=== PATIENT | male | born 1990 | race Caucasian/White ===

== ENCOUNTER 2020-11-06 20:15 | Emergency (ER) | payer SELFPAY ==
[2020-11-06] MEDS ORDERED: diphenhydrAMINE 50 MG/ML VIAL ONE (20:45)
[2020-11-06] MEDS ORDERED: Acetaminophen 500 MG TAB ONE (20:46)
[2020-11-06] MEDS ORDERED: Ketorolac Tromethamine 30 MG/ML VIAL ONE (20:46)
[2020-11-06] MEDS ORDERED: Metoclopramide HCl 10 MG/2 ML VIAL ONE (20:46)
== END 2020-11-06 22:14 | disposition left against medical advice (07) ==
LOC: CSHERS 20:15
DX: E86.0 Dehydration (principal); R51.9 Headache, unspecified; F17.210 Nicotine dependence, cigarettes, uncomplicated
CPT/HCPCS: 96365; 96375; J1200; J1885; J2765

== ENCOUNTER 2021-06-25 00:54 | Emergency (ER) | payer SELFPAY | END 2021-06-25 02:49 | disposition home or self-care (01) | LOC: CSHERS 00:54 | DX: S60.031A Contusion of right middle finger without damage to nail, initial encounter (principal); W22.8XXA Striking against or struck by other objects, initial encounter; J45.909 Unspecified asthma, uncomplicated; F17.210 Nicotine dependence, cigarettes, uncomplicated ==

== ENCOUNTER 2024-05-03 23:01 | Emergency (ER) | payer OTHER, SELFPAY ==
[2024-05-03] MEDS ORDERED: Nitroglycerin 2% Ointment 1 INCH/1 GM Packet ONE (23:31)
[2024-05-03] MEDS ORDERED: Aspirin Chewable 81 MG TAB ONE (23:32)
[2024-05-04 00:15] LABS: #Basophils 0.09 10x3/uL (0.0-0.2); #Eosinophils 0.16 10x3/uL (0.0-0.5); #Monocytes 0.85 10x3/uL (0.0-1.1); #Neutrophils 6.45 10x3/uL (1.5-8.4); %Basophils 0.8 % (0.0-2.0); %Eosinophils 1.5 % (0.0-6.0); %Lymphocytes 28.3 % (18.0-47.0); Hematocrit 41.9 % (38.8-50.0); Hemoglobin 14.9 g/dL (13.5-17.5); Mean Corpuscular HGB CONC 35.6 g/dL (32.0-36.0); Mean Corpuscular Hemoglobin 31.5 pg (27.0-33.0); Mean Corpuscular Volume 88.6 fL (81.2-95.1); Mean Platelet Volume 10.1 fL (7.4-10.4); Platelet Count 352 10x3/uL (150-450); RBC Distribution Width 11.9 % (11.5-14.5); Red Blood Cell (RBC) Count 4.73 10x6/uL (4.32-5.72); White Blood Cell (WBC) Count 10.6 10x3/uL (3.5-10.5)
[2024-05-04 00:30] LABS: ALT (SGPT) 76 U/L (8-55); AST (SGOT) 38 U/L (5-34); Alkaline Phosphatase 37 U/L (40-110); Anion Gap 14 mmol/L (10-20); BUN (Urea Nitrogen) 9 mg/dL (8.9-20.6); Bilirubin, Total 0.5 mg/dL (0.2-1.2); Calc. Creatinine Clearance 0 mL/min (70-130); Calcium 9.7 mg/dL (7.8-10.44); Carbon Dioxide 25 mmol/L (22-29); Chloride 107 mmol/L (98-107); Estimated GFR 120; Globulin 2.4 g/dL (2.4-3.5); Glucose 89 mg/dL (70-105); Potassium 4.1 mmol/L (3.5-5.1); Protein, Total 6.4 g/dL (6.0-8.3); Sodium 142 mmol/L (136-145)
[2024-05-04 00:36] LABS: Troponin I 0.012 ng/mL (< 0.028)
[2024-05-04 02:02] LABS: Troponin I Less than 0.010 ng/mL (< 0.028)
== END 2024-05-04 02:15 | disposition home or self-care (01) ==
LOC: CSHERS 23:01
DX: R07.9 Chest pain, unspecified (principal); F17.210 Nicotine dependence, cigarettes, uncomplicated; F17.290 Nicotine dependence, other tobacco product, uncomplicated
CPT/HCPCS: 36415; 71045; 80053; 84484; 85025; 93005

== ENCOUNTER → 2024-05-15 | Emergency (ER) | payer OTHER ==
[2024-05-17 17:24] LABS: ALT (SGPT) 81 U/L (8-55); AST (SGOT) 35 U/L (5-34); Albumin 3.7 g/dL (3.5-5.0); Alkaline Phosphatase 39 U/L (40-110); Anion Gap 14 mmol/L (10-20); BUN (Urea Nitrogen) 11 mg/dL (8.9-20.6); Bilirubin, Total 0.6 mg/dL (0.2-1.2); Calc. Creatinine Clearance 0 mL/min (70-130); Calcium 9.5 mg/dL (7.8-10.44); Carbon Dioxide 21 mmol/L (22-29); Chloride 104 mmol/L (98-107); Estimated GFR 119; Globulin 2.4 g/dL (2.4-3.5); Glucose 143 mg/dL (70-105); Potassium 3.9 mmol/L (3.5-5.1); Protein, Total 6.1 g/dL (6.0-8.3); Sodium 135 mmol/L (136-145); Troponin I Less than 0.010 ng/mL (< 0.028)
[2024-05-18 16:06] LABS: #Basophils 0.07 10x3/uL (0.0-0.2); #Eosinophils 0.12 10x3/uL (0.0-0.5); #Monocytes 0.81 10x3/uL (0.0-1.1); #Neutrophils 5.05 10x3/uL (1.5-8.4); %Basophils 0.8 % (0.0-2.0); %Eosinophils 1.3 % (0.0-6.0); %Lymphocytes 33.4 % (18.0-47.0); %Monocytes 8.8 % (0.0-10.0); %Neutrophils 54.8 % (40.0-75.0); Hematocrit 39.2 % (38.8-50.0); Hemoglobin 13.6 g/dL (13.5-17.5); Mean Corpuscular HGB CONC 34.7 g/dL (32.0-36.0); Mean Corpuscular Hemoglobin 31.8 pg (27.0-33.0); Mean Corpuscular Volume 91.6 fL (81.2-95.1); Mean Platelet Volume 10.9 fL (7.4-10.4); Platelet Count 340 10x3/uL (150-450); RBC Distribution Width 11.8 % (11.5-14.5); Red Blood Cell (RBC) Count 4.28 10x6/uL (4.32-5.72); White Blood Cell (WBC) Count 9.2 10x3/uL (3.5-10.5)
[2024-05-18 17:05] LABS: Burr Cells SLIGHT = 2-5 cells (100X) (0-1/hpf)
[2024-05-18 17:06] LABS: Large Platelets SLIGHT (None Seen); Platelet Clumps MODERATE
== END ==
LOC: CSHERS 21:36
DX: R07.9 Chest pain, unspecified (principal)
CPT/HCPCS: 71045; 80053; 84484; 85025; 86140; 93005; 99285

== ENCOUNTER 2024-07-04 15:07 | Emergency (ER) | payer OTHER, SELFPAY ==
[2024-07-04] MEDS ORDERED: Ondansetron PF 4 MG/2 ML Vial ONE (15:42)
[2024-07-04] MEDS ORDERED: Dexamethasone 10 MG/ML VIAL ONE (15:42)
[2024-07-04] MEDS ORDERED: Ketorolac Tromethamine 30 MG (1 mL) VIAL ONE (15:43)
[2024-07-04] MEDS ORDERED: cefTRIAXone (ROCEPHIN) 1 GM VIAL ONE (15:43)
== END 2024-07-04 16:54 | disposition home or self-care (01) ==
LOC: CSHERS 15:07
DX: K12.2 Cellulitis and abscess of mouth (principal); E86.0 Dehydration; I10 Essential (primary) hypertension; F17.290 Nicotine dependence, other tobacco product, uncomplicated; Z79.899 Other long term (current) drug therapy
CPT/HCPCS: 96365; 96375; J0696; J1100; J1885; J2405